=== PATIENT | male | born 1945 | race Caucasian/White ===

== ENCOUNTER 2016-06-27 22:43 | Emergency (ER) | payer OTHER ==
[~2016-06-27] VITALS: Ht 182.9 cm; Wt 88.6 kg
[~2016-06-27 22:43] MED LIST: CELEBREX100 MG PO
[2016-06-28] MEDS ORDERED: CIPRODEX OTIC7.5 ML LEFT EAR (00:01)
[2016-06-28] MEDS ORDERED: AMOXICILLIN875 MG PO (00:01)
[2016-06-28 00:22] VITALS: BP 175/79
== END 2016-06-28 00:23 | disposition home or self-care (01) ==
LOC: EXP 22:43 → EME 22:43 → EXP 06-28 00:23
DX: H66.92 Otitis media, unspecified, left ear (principal); H72.92 Unspecified perforation of tympanic membrane, left ear; R51 Headache
CPT/HCPCS: 99281; 99284